=== PATIENT | female | born 1995 | race Caucasian/White ===

== ENCOUNTER 2016-12-20 20:56 | Emergency (ER) | payer BC, MEDICAID ==
[2016-12-20] MEDS ORDERED: Acetaminophen 500 MG TAB ONE (21:18)
[2016-12-20 21:23] LABS: Bilirubin Negative (Negative); Blood, Urine Negative (Negative); Glucose, Urine (Dipstick) Negative (Negative); Ketone, Urine Negative (Negative); Nitrite Negative (Negative); Protein, Urine (Dipstick) Trace mg/dL (Neg-Trace)
[2016-12-20 21:25] LABS: Bacteria/HPF 2+ HPF (None Seen); Oval Fat Bodies/HPF Rare HPF (None Seen); RBC/HPF 0-3 HPF (0-3)
[2016-12-20] MEDS ORDERED: Nitrofurantoin Macrocrystal 50 MG CAP ONE (21:39)
== END 2016-12-20 21:42 | disposition home or self-care (01) ==
LOC: SCSER 20:56
DX: N39.0 Urinary tract infection, site not specified (principal); J02.9 Acute pharyngitis, unspecified
CPT/HCPCS: 81003; 81015; 81025; 87081; 87086; 87430; 99283

== ENCOUNTER 2017-01-11 15:37 | Inpatient (IN) | payer BC ==
[~2017-01-11 15:37] MED LIST: ISOVUE-370 76%-LOCM 1 ML ONE
[2017-01-11] MEDS ORDERED: Hydrocodone-Acetamin 15 ML UDCUP PO PRN (16:12)
[2017-01-11] MEDS ORDERED: Ondansetron HCl/PF 4 MG/2 ML Vial SLOW IVP PRN (16:13)
[2017-01-11] MEDS ORDERED: Lactated Ringer's 1,000 ML IV SCH (16:15)
[2017-01-11] MEDS ORDERED: Dexamethasone 10 MG/ML VIAL SLOW IVP SCH (16:15)
[2017-01-11 16:32] VITALS: BMI 38.7
[2017-01-11] MEDS: Hydrocodone-Acetamin 15 ML UDCUP PO PRN ×2 (16:54→21:11)
[2017-01-11] MEDS ORDERED: cefTRIAXone\\ROCEPHIN 1 GM in Sodium Chloride 0.9% 100 ML IVPB SCH (17:00)
[2017-01-11] MEDS ORDERED: FLU VACC QS2017-18 36 mo. & older 0.5 ML SYRINGE IM ONE (17:45)
[2017-01-11] MEDS: cefTRIAXone\\ROCEPHIN 1 GM, Admixture Fee 1 EACH in Sodium Chloride 0.9% 100 ML IVPB SCH (17:59)
[2017-01-11] MEDS: Sodium Chloride 0.45% 1,000 ML IV SCH (18:00)
[2017-01-11] MEDS: Clindamycin/D5W 900 MG in Premix Bag 1 BAG IVPB SCH (19:20)
--- NOTE | 2017-01-11 20:17 | CT ---
CT NECK SOFT TISSUES WITH CONTRAST: INDICATIONS: Tonsillitis. FINDINGS: No drainable fluid collection in the subcutaneous tissues is seen. There is prominent adenopathy of the neck bilaterally. There is heterogeneity and increased size of the palatine tonsils bilaterall y. No obvious tonsillar abscess is seen. No prevertebral edema. The salivary glands are grossly u nremarkable. There is enlargement of the lingual tonsils. The glottis is unremarkable. No abnorma l thickening of the epiglottis. The subglottic tracheal air column is patent where visualized. The imaged upper lung zones reveal no consolidation. The osseous structures are intact. IMPRESSION: 1. Heterogeneity and increased size of the palatine tonsils, compatible with tonsillitis. No tonsi llar abscess is demonstrated. 2. Extensive bilateral adenopathy of the neck. Recommend clinical correlation. Dominant lymph nod e of the left level 2A region, measuring 2.3 cm. In light of the associated tonsillitis, followup with otolaryngology consultation may prove useful. POS: [facility]
[2017-01-12] MEDS: Hydrocodone-Acetamin 15 ML UDCUP PO PRN ×3 (00:32→10:12)
[2017-01-12] MEDS: Sodium Chloride 0.45% 1,000 ML IV SCH ×2 (00:34→08:46)
[2017-01-12] MEDS: Clindamycin/D5W 900 MG in Premix Bag 1 BAG IVPB SCH ×2 (02:41→10:12)
[2017-01-12] MEDS: cefTRIAXone\\ROCEPHIN 1 GM, Admixture Fee 1 EACH in Sodium Chloride 0.9% 100 ML IVPB SCH (05:46)
[2017-01-12 11:42] VITALS: BP 112/65; TEMP 97.8
== END 2017-01-12 14:23 | disposition home or self-care (01) | DRG 641 ==
LOC: T4-A 15:37
PROVIDERS: ADMIT Otolaryngology Plastic Surgery within the Head & Neck; ATTEND Otolaryngology Plastic Surgery within the Head & Neck
DX: E86.0 Dehydration (principal); J03.90 Acute tonsillitis, unspecified
CPT/HCPCS: 36415; 70491; 84703; J0696; J1100; J3490; J7050

== ENCOUNTER 2017-02-14 07:10 | Day surgery (SDC) | payer BC ==
[2017-02-13 12:19] VITALS: BMI 36.9
[2017-02-14 07:59] LABS: Hematocrit 40.7 % (36.0-47.0)
[2017-02-14] MEDS ORDERED: Scopolamine 1.5 mg/72 hour Patch ONE (08:26)
[2017-02-14] MEDS ORDERED: Midazolam HCl 2 mg/2 ml Vial ONE (08:26)
[2017-02-14] MEDS ORDERED: Meperidine HCl/PF 25 MG/ML VIAL ONE (09:43)
[2017-02-14] MEDS ORDERED: Fentanyl 100 MCG/2 ML VIAL ONE ×2 (09:43→10:24)
[2017-02-14] MEDS ORDERED: Hydrocodone-Acetamin 15 ML UDCUP ONE (12:42)
--- NOTE | 2017-02-14 16:31 | OP ---
DATE OF PROCEDURE: 02/14/2017 PREOPERATIVE DIAGNOSES: 1. Chronic adenotonsillitis. 2. Adenotonsillar hypertrophy. POSTOPERATIVE DIAGNOSES: 1. Chronic adenotonsillitis. 2. Adenotonsillar hypertrophy. PROCEDURE: Tonsillectomy and adenoidectomy. SURGEON: Jewel Mar M.D. ESTIMATED BLOOD LOSS: 0 mL. COMPLICATIONS: None. ANESTHESIA: GETA. PROCEDURE IN DETAIL: After consent was obtained, the patient was identified, brought to the operatin g room, and placed on the operating table in the supine position. General endotracheal anesthesia an d intravenous access was obtained and we proceeded with positioning the patient for oropharyngeal omar greyson. Oropharyngeal exposure was obtained with a Tiffanie-Juan mouth gag after a head drape was placed and secured with a towel clip. The Tiffanie-Juan mouth gag was then suspended from the Joseph tray and palatal elevation was achieved with a red rubber catheter. The right tonsil was addressed first. We used a curved Allis to grasp the tonsil and retract it medially as an anterior pillar incision was m swati. The retrotonsillar fascial plane was then established and blunt dissection was performed with t he suction cautery. Blood vessels were anticipated, identified, and cauterized as they were encounte red. Ultimately, dissection was carried to the posterior tonsillar pillar mucosa which was incised h emostatically, as well as the base of tongue connection. The tonsil was then passed off as a specime n and bleeding points within the tonsillar bed were cauterized under direct visualization. We subseq uently turned our attention to the contralateral side, where using a similar technique, a near identi bassam procedure was performed. Again, the tonsil was grasped and retracted medially with a curved Ben s. The retrotonsillar fascial plane was established and while the anterior pillar was retracted medi ally, the hemostatic blunt dissection of the tonsil with a suction cautery was performed with blood v essels anticipated, identified, and cauterized as they were encountered. Again, dissection continued to the base of tongue and posterior tonsillar pillar mucosa which was incised in a hemostatic fashio n. The tonsillar beds were then carefully inspected and bleeding points were identified and cauteriz ed with a suction cautery. After this portion of the procedure, hemostasis was completely obtained. Under direct mirror visualization, we visualized the adenoid pad. Under direct mirror visualization , we removed the bulk of the adenoid tissue with the adenoid curette. We then packed the nasopharynx for an appropriate period of time with Luis-Synephrine saturated tonsillar sponges. After a period o f observation, we removed the pack. Under indirect mirror visualization, we obtained hemostasis and vaporization of residual adenoid tissue with electrocautery. The patient's oral cavity was copiously irrigated with iced saline and subsequently suctioned. After completion of the procedure, the nasal cavity and oropharynx were irrigated and suctioned as were the gastric contents. The patient was th en awakened and transferred to the recovery room where the patient remained in stable condition prior to discharge to Day Stay.
[2017-02-14] MEDS ORDERED: Glycopyrrolate 0.2 MG/ML 5 ML SYRINGE ONE (18:19)
[2017-02-14] MEDS ORDERED: Dexamethasone 20 MG/5 ML VIAL ONE (18:19)
[2017-02-14] MEDS ORDERED: Ondansetron HCl/PF 4 MG/2 ML Vial ONE (18:19)
[2017-02-14] MEDS ORDERED: Propofol 200 MG/20 ML VIAL ONE (18:19)
[2017-02-14] MEDS ORDERED: Lidocaine 1% PF 5 ML VIAL ONE (18:19)
== END 2017-02-14 13:00 | disposition home or self-care (01) ==
LOC: SDC 07:10
PROVIDERS: ATTEND Otolaryngology Plastic Surgery within the Head & Neck
PROC: 0CTQXZZ Resection of Adenoids, External Approach (ICD-10-PCS; principal; 2017-02-14)
PROC: 0CTPXZZ Resection of Tonsils, External Approach (ICD-10-PCS; principal; 2017-02-14)
DX: J35.03 Chronic tonsillitis and adenoiditis (principal); Z79.3 Long term (current) use of hormonal contraceptives; Z98.890 Other specified postprocedural states
CPT/HCPCS: 36415; 84703; 85014; 88304; J0131; J1100; J2001; J2175; J2250; J2405; J2704; J3010

== ENCOUNTER 2017-08-23 15:12 | Outpatient (CLI) | payer BC | END 2017-08-23 15:13 | disposition home or self-care (01) | LOC: DTY/OP 15:12 | PROVIDERS: ATTEND Surgery | DX: E66.01 Morbid (severe) obesity due to excess calories (principal) | CPT/HCPCS: 97802 ==

== ENCOUNTER 2017-09-20 15:32 | Outpatient (CLI) | payer BC | END 2017-09-20 15:33 | disposition home or self-care (01) | LOC: DTY/OP 15:32 | PROVIDERS: ATTEND Surgery | DX: E66.01 Morbid (severe) obesity due to excess calories (principal) | CPT/HCPCS: 97802 ==

== ENCOUNTER 2017-10-17 13:03 | Outpatient (CLI) | payer BC | END 2017-10-17 13:04 | disposition home or self-care (01) | LOC: DTY/OP 13:03 | PROVIDERS: ATTEND Surgery | DX: E66.01 Morbid (severe) obesity due to excess calories (principal) | CPT/HCPCS: 97802 ==

== ENCOUNTER 2017-11-20 09:07 | Outpatient (CLI) | payer BC | END 2017-11-20 09:08 | disposition home or self-care (01) | LOC: DTY/OP 09:07 | PROVIDERS: ATTEND Surgery | DX: E66.01 Morbid (severe) obesity due to excess calories (principal) | CPT/HCPCS: 97802 ==

== ENCOUNTER 2017-12-18 09:02 | Outpatient (CLI) | payer BC | END 2017-12-18 09:03 | disposition home or self-care (01) | LOC: DTY/OP 09:02 | PROVIDERS: ATTEND Surgery | DX: E66.01 Morbid (severe) obesity due to excess calories (principal) | CPT/HCPCS: 97802 ==

== ENCOUNTER 2018-01-22 09:02 | Outpatient (CLI) | payer BC | END 2018-01-22 09:03 | disposition home or self-care (01) | LOC: DTY/OP 09:02 | PROVIDERS: ATTEND Surgery | DX: E66.01 Morbid (severe) obesity due to excess calories (principal) | CPT/HCPCS: 97802 ==

== ENCOUNTER 2018-02-07 16:30 | Inpatient (IN) | payer BC ==
[2018-02-07 17:17] VITALS: BMI 41.5
[2018-02-11] MEDS ORDERED: Bupivacaine/Epinephrine 0.25% 30 ML VIAL ONE (06:35)
[2018-02-11] MEDS ORDERED: Famotidine/PF 20 mg/2ml Vial ONE (06:50)
[2018-02-11] MEDS ORDERED: Fentanyl 100 MCG/2 ML VIAL ONE ×4 (06:50→10:07)
[2018-02-11] MEDS ORDERED: CEFAZOLIN 2 GM/50 ML BAG ONE (06:58)
[2018-02-11] MEDS ORDERED: Heparin 5,000 UNITS/ML VIAL ONE (06:58)
[2018-02-11] MEDS ORDERED: Ondansetron HCl/PF 4 MG/2 ML Vial IVP PRN (08:53)
[2018-02-11] MEDS ORDERED: Meperidine HCl/PF 25 MG/ML VIAL SLOW IVP PRN (08:53)
[2018-02-11] MEDS ORDERED: Promethazine HCl 25 MG/ML VIAL SLOW IVP PRN (08:53)
[2018-02-11] MEDS ORDERED: Promethazine HCl 25 MG/ML VIAL IM PRN ×3 (08:53→09:22)
[2018-02-11] MEDS ORDERED: diphenhydrAMINE 50 MG/ML VIAL IVP PRN ×2 (09:10→09:22)
[2018-02-11] MEDS ORDERED: Dextrose 50% Abboject 50 ML SYRINGE SLOW IVP PRN (09:10)
[2018-02-11] MEDS ORDERED: Hydrocodone-Acetamin 15 ML UDCUP PO PRN ×2 (09:10→09:36)
[2018-02-11] MEDS ORDERED: Ondansetron PF 4 MG/2 ML Vial IVP PRN ×2 (09:10→09:22)
[2018-02-11] MEDS ORDERED: hydrALAZINE 20 MG/ML VIAL SLOW IVP PRN (09:10)
[2018-02-11] MEDS ORDERED: Dextrose 5% in Water 1,000 ML IV PRN (09:10)
[2018-02-11] MEDS ORDERED: CEFAZOLIN/Water 2 GM/20 ML SYRINGE SLOW IVP SCH (09:15)
[2018-02-11] MEDS ORDERED: Naloxone HCl 0.4 mg/ml Vial IV PRN (09:22)
[2018-02-11] MEDS ORDERED: diphenhydrAMINE 50 MG/ML VIAL IM PRN (09:22)
[2018-02-11] MEDS ORDERED: Zolpidem Tartrate 5 MG TAB PO PRN (09:22)
[2018-02-11] MEDS ORDERED: fentaNYL Citrate/PF 2,000 MCG in Sodium Chloride 0.9% 60 ML IV PRN (09:22)
[2018-02-11] MEDS ORDERED: diphenhydrAMINE 25 MG CAP PO PRN (09:22)
[2018-02-11] MEDS ORDERED: Promethazine HCl 25 MG/ML VIAL ONE (09:24)
[2018-02-11] MEDS ORDERED: Communication Order-Pharmacy FS SCH (09:30)
[2018-02-11] MEDS ORDERED: D5 1/2 NS w/20 mEq KCL 1,000 ML ONE (09:41)
--- NOTE | 2018-02-11 09:43 | OP ---
DATE OF PROCEDURE: 02/11/2018 PREOPERATIVE DIAGNOSIS: Morbid obesity. SURGEON: Arturo Pearl M.D. PROCEDURE PERFORMED: Laparoscopic Dm-en-Y gastric bypass with esophagogastroscopy. INDICATIONS: A 22-year-old female who has been morbidly obese for many years and attempted multiple weight loss programs without success. She has had some reflux and desired a gastric bypass as oppose d to a sleeve. FINDINGS: A 100 cm Dm limb was created. PROCEDURE IN DETAIL: After informed consent was obtained, the patient was taken to the operating rock m and given general endotracheal anesthesia. She was placed in the supine position. The abdomen was prepped and draped in usual fashion. Local anesthesia infiltrated subcutaneously and deep and a 12 mm incision was performed approximately 8 inches below the xiphoid slightly to the left. Veress need le inserted. Drop test performed. Pneumoperitoneum was created to a volume of 2 liters of carbon di oxide. Utilizing a bladeless 12 mm trocar and 0 degree laparoscope, direct visual entry in the abdom inal cavity was performed. Pneumoperitoneum was created to a pressure of 15 mmHg. Under direct visi on, two 12 mm ports were placed on the right, 1 on the left. The omentum was grasped and advanced chiu periorly. The ligament of Treitz was found and 60 cm of proximal jejunum was measured off. The jeju num was then divided utilizing the linear 60 mm white load stapler. Then 100 cm of jejunum was measu red off and a [id number] functional end-to-end anastomosis was performed. The bowel antimesenteric edges were approximated with a 2-0 silk suture tied intracorporeally. Then, the bowel was scored pr oximally and distally with electrocautery. Enterotomies created. The linear stapler was inserted, 1 limb in each limb of bowel, closed, and fired to create the anastomosis. The common enterotomy was closed with a running 3-0 V-Loc tied intracorporeally. Then, the patient placed in steep reverse Naren ndelenburg position. Nathansen liver retractor inserted. Left lobe of liver retracted superiorly. On the lesser curve of the stomach a blunt dissection was performed to enter the lesser sac. The sto mach was divided transversely with a linear 60 mm blue load stapler. Then the pouch was created with a series of blue staple loads through the angle of His. A gastrotomy was performed with electrocaut sarah. Then an enterotomy created with electrocautery on the Dm limb after the omentum was split. T he linear 60 mm blue load stapler was inserted 1 limb in the jejunum and 1 limb in the stomach. Then closed and fired. The gastrojejunostomy enterotomy was closed transversely with a 3-0 V-Loc tied in tracorporeally. Then intraoperative endoscopy was performed. The video endoscope inserted under dir ect vision and advanced into the stomach and into the Dm limb. There was no active bleeding. Ther e was no obstruction, free flow into the jejunum. There was no air leak under water. The jejunal lo op was then decompressed and the scope removed. The potential hernia space of Mccollum was closed wi th interrupted 2-0 silk sutures tied intracorporeally. Hemostasis was assured. Trocars and retracto rs removed. The skin closed with interrupted 4-0 Rapide. Dermabond applied. The patient tolerated the procedure well and was transferred to recovery in good condition. Sponge and needle count verifi ed correct x2.
[2018-02-11] MEDS ORDERED: Metoclopramide HCl 10 MG/2 ML VIAL ONE (14:52)
[2018-02-11] MEDS ORDERED: Glycopyrrolate 0.2 MG/ML 5 ML SYRINGE ONE (14:52)
[2018-02-11] MEDS ORDERED: Ondansetron PF 4 MG/2 ML Vial ONE (14:52)
[2018-02-11] MEDS ORDERED: Lidocaine 1% PF 5 ML VIAL ONE (14:52)
[2018-02-11] MEDS ORDERED: PROPOFOL 200 MG/20 ML VIAL ONE (14:52)
[2018-02-11] MEDS ORDERED: Dexamethasone 20 MG/5 ML VIAL ONE (14:52)
[2018-02-11] MEDS ORDERED: Ketorolac Tromethamine 30 MG/ML VIAL ONE (14:52)
[2018-02-11] MEDS: CEFAZOLIN 2 GM/50 ML-DEXTROSE 2 GM in Premix Bag 1 BAG IVPB SCH ×2 (16:27→23:38)
[2018-02-11] MEDS: Ketorolac Tromethamine 30 MG/ML VIAL IVP SCH ×3 (16:28→23:42)
[2018-02-11] MEDS: D5 1/2 NS w/20 mEq KCL 1,000 ML IV SCH ×2 (16:28→19:36)
[2018-02-12] MEDS: D5 1/2 NS w/20 mEq KCL 1,000 ML IV SCH ×2 (01:58→09:23)
[2018-02-12 05:45] LABS: #Lymphocytes 1.3 thou/uL (1.20-3.40); #Monocytes 0.8 thou/uL (0.11-0.59); #Neutrophils 8.5 thou/uL (1.40-6.50); %Basophils 0.1 % (0.0-1.0); %Eosinophils 0.2 % (0.0-10.0); %Lymphocytes 12.5 % (21.0-51.0); %Monocytes 7.8 % (0.0-10.0); %Neutrophils 79.4 % (42.0-75.0); Anion Gap 11 mmol/L (10-20); BUN (Urea Nitrogen) 6 mg/dL (7.0-18.7); Calc. Creatinine Clearance 230 mL/min (70-130); Calcium 9.5 mg/dL (7.8-10.44); Carbon Dioxide 25 mmol/L (22-29); Chloride 108 mmol/L (98-107); Estimated GFR-MDRD Greater than 90; Glucose 111 mg/dL (70-105); Hemoglobin 12.9 g/dL (12.0-16.0); Mean Corpuscular HGB CONC 32.7 g/dL (32.0-36.0); Mean Corpuscular Hemoglobin 29.9 pg (27.0-31.0); Mean Corpuscular Volume 91.4 fL (78.0-98.0); Mean Platelet Volume 7.3 fL (7.4-10.4); Platelet Count 295 thou/uL (130-400); Red Blood Cell (RBC) Count 4.32 mill/uL (4.20-5.40); Sodium 140 mmol/L (136-145); White Blood Cell (WBC) Count 10.7 thou/uL (4.8-10.8)
[2018-02-12] MEDS: Ketorolac Tromethamine 30 MG/ML VIAL IVP SCH ×2 (06:20→11:42)
[2018-02-12] MEDS ORDERED: Pantoprazole 40 MG VIAL IVP SCH (09:00)
[2018-02-12] MEDS ORDERED: Enoxaparin Sodium 40 MG/0.4 ML SYRINGE SC SCH (09:00)
--- NOTE | 2018-02-12 10:30 | RAD ---
SINGLE CONTRAST UPPER GI NO AIR: History: 22-year-old female with history of post op gastric bypass. Dose: 6.053 mGy*cm^2 FINDINGS: Patient swallowed 15 cc of Gastrografin orally in the upright position. Contrast media passes readily through the distal esophagus into the post-operative stomach and jejunum. No evidence for obstructio n. No evidence for leak. IMPRESSION: Unremarkable post gastric bypass Gastrografin swallow. POS: [facility]
[2018-02-12] MEDS ORDERED: GASTROGRAFIN 30 ML BOT ONE (11:49)
[2018-02-12 11:54] VITALS: BP 128/83; TEMP 98.2
--- NOTE | 2018-02-12 19:37 | DIS ---
DISCHARGE DIAGNOSIS: Morbid obesity. PROCEDURES DURING ADMISSION: Laparoscopic Dm-en-Y gastric bypass with intraoperative esophagogastr oscopy, postoperative Gastrografin swallow. HOSPITAL COURSE: The patient was admitted, taken to the operating room where she underwent a laparos copic gastric bypass. She had a swallow study this morning, it was fine. She is tolerating liquids well. Her pain is controlled on p.o. meds. She is discharged home on hydrocodone and Zofran. She w ill follow up with me in 2 weeks.
== END 2018-02-12 14:43 | disposition home or self-care (01) | DRG 621 ==
LOC: SURG A 02-11 06:06
PROVIDERS: ADMIT Surgery; ATTEND Surgery
PROC: 0D164ZA Bypass Stomach to Jejunum, Percutaneous Endoscopic Approach (ICD-10-PCS; principal; 2018-02-11)
PROC: 0DJ08ZZ Inspection of Upper Intestinal Tract, Via Natural or Artificial Opening Endoscopic (ICD-10-PCS; 2018-02-11)
DX: E66.01 Morbid (severe) obesity due to excess calories (principal); Z68.41 Body mass index [BMI] 40.0-44.9, adult; Z79.899 Other long term (current) drug therapy
CPT/HCPCS: 36415; 74241; 80048; 85025; 90471; 90686; C9113; G0008; J0131; J1100; J1644; J1650; J1885; J2001; J2405; J2550; J2704; J2765; J3010; J7050; S0028

== ENCOUNTER 2018-02-07 16:54 | Outpatient (CLI) | payer BC ==
[2018-02-07 17:24] LABS: #Basophils 0.1 thou/uL (0.0-0.2); #Eosinphils 0.1 thou/uL (0.0-0.7); #Lymphocytes 2.4 thou/uL (1.20-3.40); #Monocytes 0.6 thou/uL (0.11-0.59); #Neutrophils 6.2 thou/uL (1.40-6.50); %Basophils 0.6 % (0.0-1.0); %Eosinophils 1.4 % (0.0-10.0); %Lymphocytes 25.6 % (21.0-51.0); %Monocytes 6.8 % (0.0-10.0); %Neutrophils 65.6 % (42.0-75.0); Hemoglobin 13.7 g/dL (12.0-16.0); Mean Corpuscular HGB CONC 33.7 g/dL (32.0-36.0); Mean Corpuscular Hemoglobin 30.4 pg (27.0-31.0); Mean Corpuscular Volume 90.3 fL (78.0-98.0); Mean Platelet Volume 6.6 fL (7.4-10.4); Platelet Count 343 thou/uL (130-400); RBC Distribution Width 10.9 % (11.5-14.5); Red Blood Cell (RBC) Count 4.52 mill/uL (4.20-5.40); White Blood Cell (WBC) Count 9.5 thou/uL (4.8-10.8)
[2018-02-07 17:27] LABS: BHCG - Serum Negative (NEGATIVE); Pregs Control Background? CLEAR/WHITE (CLR/WHITE); Pregs Control Bar Appear? YES (CONTROL BAR)
[2018-02-07 17:45] LABS: ALT (SGPT) 39 U/L (8-55); AST (SGOT) 23 U/L (5-34); Albumin 4.3 g/dL (3.5-5.0); Alkaline Phosphatase 57 U/L (40-150); Anion Gap 12 mmol/L (10-20); BUN (Urea Nitrogen) 17 mg/dL (7.0-18.7); Bilirubin, Direct 0.3 mg/dL (0.1-0.3); Bilirubin, Total 0.7 mg/dL (0.2-1.2); Calc. Creatinine Clearance 0 mL/min (70-130); Calcium 9.9 mg/dL (7.8-10.44); Carbon Dioxide 24 mmol/L (22-29); Chloride 106 mmol/L (98-107); Estimated GFR-MDRD 89; Globulin 3.4 g/dL (2.4-3.5); Glucose 84 mg/dL (70-105); Potassium 3.8 mmol/L (3.5-5.1); Protein, Total 7.7 g/dL (6.0-8.3); Sodium 138 mmol/L (136-145)
--- NOTE | 2018-02-07 18:55 | RAD ---
TWO VIEWS CHEST: 02/07/18 HISTORY: Preoperative chest radiograph. PA and lateral views of the chest is obtained. The lungs are well aerated. No evidence of active intr athoracic disease seen. No evidence of effusions, pneumonia or pneumothorax seen. IMPRESSION: Unremarkable two views chest. POS: [facility]
== END 2018-02-07 16:55 | disposition home or self-care (01) ==
LOC: LABBT 16:54
PROVIDERS: ATTEND Surgery
DX: Z01.818 Encounter for other preprocedural examination (principal); E66.01 Morbid (severe) obesity due to excess calories
CPT/HCPCS: 71046; 80053; 80076; 84703; 85025; 93005; 93010